=== PATIENT | female | born 2000 | race Caucasian/White ===

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

== ENCOUNTER → 2018-03-16 | Outpatient (CLI) | payer BC ==
[~2018-03-16] MED LIST changes: +IOHEXOL 300 MG/ML 75 ML VIAL. IV ONE
--- NOTE | 2018-03-16 16:03 | RAD ---
PQRS Compliance Statement: One or more of the following individualized dose reduction techniques were utilized for this examination: 1. Automated exposure control 2. Adjustment of the mA and/or kV according to patient size 3. Use of iterative reconstruction technique Neck CT with contrast: 03/16/2018 Indication: Increasing dysphagia. Technique: Multiple axial images were obtained through the neck following intravenous injection of contrast material. Comparison: None. Findings: The visualized brain parenchyma appears intact. The skull base is normal. The visualized paranasal sinuses and orbital contents are normal. The sella turcica and cavernous sinus regions appear intact. The mastoid air cells are normal. The fossa of Rosenmuller is normal. The parotid space contents and housekeeping room inspector space contents appear intact. The parapharyngeal spaces are normal. The submandibular and sublingual space contents appear intact. The epiglottis, aryepiglottic folds, and piriform sinuses are normal. Nodular density is noted within the right vallecula. This measures approximately 10 x 9 mm. The larynx and trachea are normal. The thyroid lobes appear intact. The carotid space contents are normal. There are borderline level 2 level 3 lymph nodes measuring up to 10 mm by short axis. The region of the marker there is a level 3 lymph node measuring 10 mm by short axis. The perivertebral space contents are normal. The supraclavicular regions appear intact. Soft tissue density within the anterior superior mediastinum posterior to represent residual thymic tissue. The visualized lungs appear intact. The visualized osseous structures are normal. Impression: 1. Nodular mucosal abnormality identified within the right vallecula, contiguous with the lingual tonsils. Consideration may be given for tonsillar lymphoid hyperplasia versus filling defect secondary to the retained debris from previously ingested material. Correlate with direct visualization. 2. Borderline cervical lymph nodes may be reactive. Findings are not atypical for a patient in this age group. If there is persistent clinical concern, a 3 month follow-up ultrasound may be of benefit. Correlate with any recent URI. 3. Soft tissue density within the anterior superior mediastinum posterior to represent residual thymic tissue. 4. Thyroid gland is normal. Electronically signed by: Erendira Rodriguez MD (03/16/2018 3:59 PM) [id number]
== END | disposition home or self-care (01) ==
LOC: CT 15:25
PROVIDERS: ATTEND Nurse Practitioner Family
DX: E04.8 Other specified nontoxic goiter (principal); Z88.1 Allergy status to other antibiotic agents; Z88.5 Allergy status to narcotic agent
CPT/HCPCS: 70491; Q9967

== ENCOUNTER → 2020-04-12 | Outpatient (CLI) | payer OTHER ==
[2019-11-29 21:52] VITALS: BP 112/58
[~2020-04-12] MED LIST changes: +DICL50TA4 PO; -IOHEXOL 300 MG/ML 75 ML VIAL. IV ONE; +ORPH-16 PO; -OXYM30SP NS; +OXYM30SP25 NS; +TRAM50TA PO
--- NOTE | 2020-04-12 08:42 | RAD ---
EXAM: First Trimester OB Ultrasound INDICATION: Reason: Encounter for in 1st trimester, unknown dates / Spl. Instructions: / History: TECHNIQUE: Real-time first trimester obstetrical ultrasound was performed with permanent freeze-frame documentation. COMPARISON: None. FINDINGS: GESTATIONAL SAC: Gestational sac shape and amniotic fluid volume within normal limits. POLE: Unremarkable. Yolk sac visualized. CROWN RUMP LENGTH: 1.6 cm HEART RATE: 1 73 bpm PLACENTA: Too early to adequately assess. MATERNAL UTERUS: Unremarkable. MATERNAL ADNEXA: Unremarkable. AGE/DATES: Gestational Age by LMP: Unknown Gestational Age by US: 8 weeks 0 days EDC by LMP: Unknown EDC by US: November 22, 2020 IMPRESSION: Normal viable first trimester OB ultrasound. Estimated gestational age of 8 weeks 0 days and EDC of November 22, 2020. Electronically signed by: Luna Padilla MD (04/12/2020 8:40 AM) [id number]
== END ==
LOC: US 07:46 → MERGE 07:46
PROVIDERS: ATTEND Obstetrics & Gynecology
DX: Z34.91 Encounter for supervision of normal pregnancy, unspecified, first trimester (principal); Z3A.08 8 weeks gestation of pregnancy
CPT/HCPCS: 76801

== ENCOUNTER → 2020-05-03 | Outpatient (CLI) | payer OTHER ==
[2019-11-29 21:52] VITALS: BP 112/58
[2020-05-03 15:58] LABS: BASO % 0 % (0-3); EOS % 0 % (0-3); HEMATOCRIT 40.6 % (36.0-47.0); HEMOGLOBIN 13.7 g/dL (12.0-15.5); LYMPH # 2.1 x10^3/uL (1.0-4.8); LYMPH % 20 % (24-48); MEAN CORPUSCULAR HEMOGLOBIN 30 pg (25-35); MEAN CORPUSCULAR HGB CONC 34 g/dL (31-37); MEAN CORPUSCULAR VOLUME 88 fL (79-100); MONO # 0.6 x10^3/uL (0.0-1.1); MONO % 6 % (0-9); NEUT # 7.5 x10^3uL (1.8-7.7); NEUT % 73 % (31-73); PLATELET COUNT 283 x10^3/uL (140-400); RED BLOOD COUNT 4.63 x10^6/uL (3.50-5.40); RED CELL DISTRIBUTION WIDTH 12.7 % (11.5-14.5); WHITE BLOOD COUNT 10.2 x10^3/uL (4.0-11.0)
[2020-05-04 11:51] LABS: FREE T4 1.07 ng/dL (0.76-1.46); THYROID STIM HORMONE (TSH) 0.642 uIU/mL (0.358-3.740)
[2020-05-04 17:11] LABS: RUBELLA IGG ANTIBODY 2.49 index (Immune >0.99)
== END ==
LOC: LAB 14:12
PROVIDERS: ATTEND Obstetrics & Gynecology
DX: Z34.91 Encounter for supervision of normal pregnancy, unspecified, first trimester (principal); Z3A.11 11 weeks gestation of pregnancy
CPT/HCPCS: 81220; 84439; 84443; 85025; 85660; 86592; 86703; 86762; 86787; 86803; 86850; 86900; 86901; 87086; 87340; 87491; 87591

== ENCOUNTER → 2020-05-17 | Outpatient (CLI) | payer OTHER ==
[2019-11-29 21:52] VITALS: BP 112/58
== END ==
LOC: LAB 10:22
PROVIDERS: ATTEND Internal Medicine Cardiovascular Disease
DX: Z20.828 Contact with and (suspected) exposure to other viral communicable diseases (principal)
CPT/HCPCS: U0003

== ENCOUNTER → 2020-06-11 | Outpatient (CLI) | payer OTHER ==
[2019-11-29 21:52] VITALS: BP 112/58
== END ==
LOC: LAB 13:57
PROVIDERS: ATTEND Obstetrics & Gynecology
DX: Z34.92 Encounter for supervision of normal pregnancy, unspecified, second trimester (principal); Z3A.00 Weeks of gestation of pregnancy not specified
CPT/HCPCS: 36415; 81511

== ENCOUNTER → 2020-08-13 | Outpatient (CLI) | payer OTHER ==
[2019-11-29 21:52] VITALS: BP 112/58
[2020-08-13 16:41] LABS: BASO % 0 % (0-3); EOS # 0.1 x10^3/uL (0.0-0.7); EOS % 1 % (0-3); HEMOGLOBIN 12.8 g/dL (12.0-15.5); LYMPH # 2.2 x10^3/uL (1.0-4.8); LYMPH % 16 % (24-48); MEAN CORPUSCULAR HEMOGLOBIN 30 pg (25-35); MEAN CORPUSCULAR HGB CONC 34 g/dL (31-37); MEAN CORPUSCULAR VOLUME 89 fL (79-100); MONO # 0.8 x10^3/uL (0.0-1.1); MONO % 6 % (0-9); NEUT # 10.7 x10^3uL (1.8-7.7); NEUT % 78 % (31-73); PLATELET COUNT 306 x10^3/uL (140-400); RED BLOOD COUNT 4.27 x10^6/uL (3.50-5.40); RED CELL DISTRIBUTION WIDTH 13.1 % (11.5-14.5); WHITE BLOOD COUNT 13.7 x10^3/uL (4.0-11.0)
== END ==
LOC: LAB 14:26
PROVIDERS: ATTEND Obstetrics & Gynecology
DX: Z34.92 Encounter for supervision of normal pregnancy, unspecified, second trimester (principal); Z3A.00 Weeks of gestation of pregnancy not specified
CPT/HCPCS: 36415; 82950; 85025

== ENCOUNTER → 2021-01-23 | Outpatient (CLI) | payer OTHER ==
[2019-11-29 21:52] VITALS: BP 112/58
== END ==
LOC: LAB 12:04
PROVIDERS: ATTEND Internal Medicine Cardiovascular Disease
DX: Z20.822 Contact with and (suspected) exposure to COVID-19 (principal)
CPT/HCPCS: U0003; U0005

== ENCOUNTER → 2021-01-30 | Outpatient (CLI) | payer OTHER ==
[2019-11-29 21:52] VITALS: BP 112/58
== END ==
LOC: LAB 07:46
PROVIDERS: ATTEND Internal Medicine Cardiovascular Disease
DX: Z20.822 Contact with and (suspected) exposure to COVID-19 (principal)
CPT/HCPCS: U0005

== ENCOUNTER → 2021-02-06 | Outpatient (CLI) | payer OTHER ==
[2019-11-29 21:52] VITALS: BP 112/58
== END ==
LOC: LAB 07:59
PROVIDERS: ATTEND Internal Medicine Cardiovascular Disease
DX: Z20.822 Contact with and (suspected) exposure to COVID-19 (principal)
CPT/HCPCS: U0003

== ENCOUNTER → 2021-02-13 | Outpatient (CLI) | payer OTHER ==
[2019-11-29 21:52] VITALS: BP 112/58
== END ==
LOC: LAB 07:05
PROVIDERS: ATTEND Internal Medicine Cardiovascular Disease
DX: Z20.822 Contact with and (suspected) exposure to COVID-19 (principal)
CPT/HCPCS: U0003

== ENCOUNTER → 2021-06-05 | Outpatient (CLI) | payer OTHER ==
[2019-11-29 21:52] VITALS: BP 112/58
== END ==
LOC: LAB 09:22
PROVIDERS: ATTEND Internal Medicine Cardiovascular Disease
DX: Z20.822 Contact with and (suspected) exposure to COVID-19 (principal)
CPT/HCPCS: U0003

== ENCOUNTER → 2021-06-17 | Outpatient (CLI) | payer OTHER ==
[2019-11-29 21:52] VITALS: BP 112/58
== END ==
LOC: LAB 06-12 07:00
PROVIDERS: ATTEND Internal Medicine Cardiovascular Disease
DX: Z20.822 Contact with and (suspected) exposure to COVID-19 (principal)
CPT/HCPCS: U0003

== ENCOUNTER → 2021-07-14 | Outpatient (CLI) | payer OTHER ==
[2019-11-29 21:52] VITALS: BP 112/58
== END ==
LOC: LAB 15:00
PROVIDERS: ATTEND Internal Medicine Cardiovascular Disease
DX: Z20.822 Contact with and (suspected) exposure to COVID-19 (principal)
CPT/HCPCS: C9803; U0003